=== PATIENT | female | born 1985 | race Caucasian/White ===

== ENCOUNTER → 2025-03-18 | Outpatient (CLI) | payer BC, SELFPAY ==
[2025-03-18 15:37] LABS: HCG Qualitative,Urine Negative
--- NOTE | 2025-03-18 16:00 | XR_ITS ---
Examination: CT abdomen, without intravenous contrast. CT abdomen, with intravenous contrast. Sagittal and coronal 2-D reconstructions. Time of exam: March 18, 2025, 1645 hours, comparison October 20, 2022 INDICATIONS: Periumbilical pain, left lobe liver lesion on CT study October 20, 2022 CTDI: vol (mGy) 13.1 DLP: (mGycm) 467 Technique: Multiple 3.0 mm axial noncontrast images of the abdomen have been obtained. Multiple 3.0 mm axial images post administration 60 cc [id number] intravenous contrast have been obtained. Sagittal and coronal 3-D reconstructions have been obtained. Low dose protocols were performed. One or more of the following dose reduction techniques were used; automated exposure control, adjustment of the mA and/or KV according to patient size, use of iterative reconstruction technique. Findings: No visualized liver or splenic lesion No gallstones No pancreatic or adrenal mass No renal or ureteral calculi, no hydronephrosis Aorta normal size. 14 mm fat-containing umbilical hernia No bowel obstruction Absent appendix IMPRESSION: 14 mm fat-containing umbilical hernia
== END | disposition home or self-care (01) ==
PROVIDERS: PCP Nurse Practitioner; Referring Provider Nurse Practitioner; Visit Provider Nurse Practitioner
DX: K42.9 Umbilical hernia without obstruction or gangrene (principal); Z32.00 Encounter for pregnancy test, result unknown
CPT/HCPCS: 74170; 81025; A4649; Q9967